=== PATIENT | female | born 1975 | race Caucasian/White ===

== ENCOUNTER 2017-05-08 16:37 | Emergency (ER) | payer MEDICAID ==
[~2017-05-08] VITALS: Ht 167.6 cm; Wt 77.1 kg
[2017-05-08] MEDS ORDERED: PROAIR HFA8.5 GM SPRAY (17:14)
[2017-05-08] MEDS ORDERED: ADDERALL 20 MG20 MG PO (17:15)
[2017-05-08] MEDS ORDERED: LITHATE20 MG PO (17:15)
[2017-05-08] MEDS ORDERED: XANAX1 MG PO (17:16)
[2017-05-08] MEDS ORDERED: HYDROCODONE-AP1 EAC6 PO (18:50)
[2017-05-08 18:54] VITALS: BP 97/68
== END 2017-05-08 18:55 | disposition home or self-care (01) ==
LOC: M.ERS 16:37
DX: M24.412 Recurrent dislocation, left shoulder (principal); F41.9 Anxiety disorder, unspecified; F31.9 Bipolar disorder, unspecified; F90.9 Attention-deficit hyperactivity disorder, unspecified type; J44.9 Chronic obstructive pulmonary disease, unspecified; Z88.0 Allergy status to penicillin; Z88.8 Allergy status to other drugs, medicaments and biological substances